=== PATIENT | female | born 1970 | race Caucasian/White ===

== ENCOUNTER 2019-07-11 19:03 | Emergency (ER) | payer OTHER ==
[2019-07-11] MEDS ORDERED: ASPIRIN 81 MG TABLET, CHEWABLE PO ONE (20:21)
--- NOTE | 2019-07-11 20:22 | ER Document Report ---
ED Medical Screen (RME) - General Chief Complaint: Chest Pain Stated Complaint: CHEST PAIN Time Seen by Provider: 07/11/19 20:12 TRAVEL OUTSIDE OF THE [place] IN LAST 30 DAYS: No - HPI Notes: 07/11/19 20:21 49-year-old female presents emergency room for complaints of substernal chest pain or shortness of breath that started approximately 2 hours ago while she was out with her friends, states that she is under a lot of stress, her girlfriends brother just which brought up memories of when her mother , and she also has to go to a different state to stay with her father who is 94 years old and is thinking about selling the farm. Patient non-smoker. Reports dad had a history of hypertension, no cardiac history with her mother. Denies any previous cardiac history. Patient states that a lot of her pain has resolved, thinks that it was related to anxiety however she still is stating that she has some chest tightness 2 out of 5. Denies any illicit drug use. I have greeted and performed a rapid initial assessment of this patient. A comprehensive ED assessment and evaluation of the patient, analysis of test results and completion of the medical decision making process will be conducted by additional ED providers. PHYSICAL EXAMINATION: GENERAL: Well-appearing, well-nourished and in no acute distress. HEAD: Atraumatic, normocephalic. NECK: Normal range of motion CV: s1, s2 regular LUNGS: No respiratory distress Musculoskeletal: Normal range of motion NEUROLOGICAL: Normal speech, normal gait. SKIN: Warm, Dry, normal turgor, no rashes or lesions noted. 07/11/19 20:22 - Related Data Allergies/Adverse Reactions: No Known Allergies Allergy (Verified 07/11/19 20:15) Home Medications: adderall, synthroid, synthroid Past Medical History - Social History Chew tobacco use (# tins/day): No Frequency of alcohol use: Occasional Drug Abuse: None - Past Medical History Cardiac Medical History: Reports: Hx Hypertension Pulmonary Medical History: Denies: Hx Tuberculosis Psychiatric Medical History: Reports: Hx Attention Deficit Hyperactivity Disorder, Hx Depression Past Surgical History: Reports: Hx Cholecystectomy, Hx Oral Surgery, Hx Orthopedic Surgery - right knee x2, Hx Tubal Ligation Physical Exam - Vital signs Vitals: Temp Pulse Resp BP Pulse Ox 97.6 F 81 16 117/80 99 07/11/19 19:32 07/11/19 19:32 07/11/19 19:32 07/11/19 19:32 07/11/19 19:32 Course - Vital Signs Vital signs: Temp Pulse Resp BP Pulse Ox 97.6 F 81 16 117/80 99 07/11/19 19:32 07/11/19 19:32 07/11/19 19:32 07/11/19 19:32 07/11/19 19:32
[2019-07-11 21:04] LABS: ABSOLUTE BASOPHILS # (AUTO) 0.1 10^3/uL (0.0-0.2); ABSOLUTE EOSINOPHILS # (AUTO) 0.1 10^3/uL (0.0-0.6); ABSOLUTE LYMPHOCYTES (AUTO) 1.3 10^3/uL (0.5-4.7); ABSOLUTE MONOCYTES (AUTO) 0.5 10^3/uL (0.1-1.4); BASOPHILS % (AUTO) 0.8 % (0-2); EOSINOPHILS % (AUTO) 1.5 % (0-6); HEMATOCRIT 41.7 % (36.0-47.0); HEMOGLOBIN 14.2 g/dL (12.0-15.5); LYMPHOCYTES % (AUTO) 18.4 % (13-45); MEAN CORPUSCULAR HEMOGLOBIN 33.5 pg (27.0-33.4); MEAN CORPUSCULAR HGB CONC 34.2 g/dL (32.0-36.0); MEAN CORPUSCULAR VOLUME 98 fl (80-97); MONOCYTES % (AUTO) 6.6 % (3-13); PLATELET COUNT 329 10^3/uL (150-450); RED BLOOD COUNT 4.25 10^6/uL (3.72-5.28); RED CELL DISTRIBUTION WIDTH 13.5 % (11.5-14.0); SEGMENTED NEUTROPHILS % (AUTO) 72.7 % (42-78); TOTAL CELLS COUNTED % (AUTO) 100 %; WHITE BLOOD COUNT 6.9 10^3/uL (4.0-10.5)
[2019-07-11 21:15] LABS: ALBUMIN 4.8 g/dL (3.5-5.0); ALKALINE PHOSPHATASE 40 U/L (38-126); ANION GAP 11 (5-19); ASPARTATE AMINO TRANSFERASE 44 U/L (14-36); BILIRUBIN,DIRECT 0.2 mg/dL (0.0-0.4); BILIRUBIN,TOTAL 0.4 mg/dL (0.2-1.3); BLOOD UREA NITROGEN 9 mg/dL (7-20); CARBON DIOXIDE 27 mmol/L (22-30); CHLORIDE 99 mmol/L (98-107); CREATINE KINASE 58 U/L (30-135); GLUCOSE 81 mg/dL (75-110); POTASSIUM 4.6 mmol/L (3.6-5.0); TOTAL PROTEIN 7.6 g/dL (6.3-8.2)
--- NOTE | 2019-07-11 21:21 | RADIOLOGY REPORT (SQ) ---
EXAM DESCRIPTION: XR CHEST 1 VIEW COMPLETED DATE/TME: 07/11/2019 20:21 CLINICAL HISTORY: 49 years, Female, chest pain COMPARISON: None. NUMBER OF VIEWS: Single TECHNIQUE: AP LIMITATIONS: None. FINDINGS: Cardiomediastinal silhouette is normal. Lungs are grossly clear. Old granulomatous disease. No effusion. No pneumothorax. IMPRESSION: No acute intrathoracic process is identified. The cause of the patient's chest pain is not identified on this examination. copyright 2010 [employer]- All Rights Reserved
[2019-07-11 21:27] LABS: CREATINE KINASE MB 0.31 ng/mL (<4.55)
[2019-07-11 21:28] LABS: TROPONIN I < 0.012 ng/mL
--- NOTE | 2019-07-11 23:32 | EKG REPORT ---
SEVERITY:- NORMAL ECG - SINUS RHYTHM : Confirmed by: Adele Mai MD 11-Jul-2019 23:32:05
[2019-07-12 01:16] VITALS: BP 108/77
--- NOTE | 2019-07-12 01:19 | ER Document Report ---
ED General - General Chief Complaint: Chest Pain Stated Complaint: CHEST PAIN Time Seen by Provider: 07/11/19 20:12 Primary Care Provider: RADHA BOBO DO [Primary Care Provider] - Follow up as needed TRAVEL OUTSIDE OF THE [place] IN LAST 30 DAYS: No - Related Data Allergies/Adverse Reactions: No Known Allergies Allergy (Verified 07/11/19 20:15) Home Medications: adderall, synthroid, synthroid Past Medical History - Social History Smoking Status: Never Smoker Chew tobacco use (# tins/day): No Frequency of alcohol use: Occasional Drug Abuse: None Family History: Hypertension Patient has suicidal ideation: No Patient has homicidal ideation: No - Past Medical History Cardiac Medical History: Reports: Hx Hypertension Pulmonary Medical History: Denies: Hx Tuberculosis Psychiatric Medical History: Reports: Hx Attention Deficit Hyperactivity Disorder, Hx Depression Past Surgical History: Reports: Hx Cholecystectomy, Hx Oral Surgery, Hx Orthopedic Surgery - right knee x2, Hx Tubal Ligation Physical Exam - Vital signs Vitals: Temp Pulse Resp BP Pulse Ox 97.6 F 81 16 117/80 99 07/11/19 19:32 07/11/19 19:32 07/11/19 19:32 07/11/19 19:32 07/11/19 19:32 Course - Re-evaluation Re-evalutation: 07/12/19 01:11 49-year-old female presented to ED with chest pain earlier that she felt could possibly be anxiety. She does have a heart score of 1 for age. She has 2- troponins she no longer has any pain her father had one mild MS in his 70s moth er did not have any coronary artery disease. EKG is normal. Will discharge home with instructions to follow-up her primary care doctor. - Vital Signs Vital signs: Temp Pulse Resp BP Pulse Ox 97.6 F 81 17 91/58 L 97 07/11/19 19:32 07/11/19 19:32 07/12/19 00:01 07/12/19 00:01 07/12/19 00:01 - Laboratory Result Diagrams: 07/11/19 20:47 07/11/19 20:47 Laboratory results interpreted by me: 07/11/19 07/11/19 20:47 20:47 MCV 98 H MCH 33.5 H AST 44 H - Diagnostic Test Radiology reviewed: Image reviewed, Reports reviewed Discharge - Discharge Clinical Impression: Chest pain Qualifiers: Chest pain type: unspecified Qualified Code(s): R07.9 - Chest pain, unspecified Condition: Stable Disposition: HOME, SELF-CARE Additional Instructions: CHEST PAIN OF UNCLEAR CAUSE: The exact cause of your chest pain isn't clear. Fortunately, there is no evidence of a dangerous medical condition. Further testing may be required to find the source of the pain. Most often, we find that this pain is coming from the chest wall -- the muscles or rib joints in the chest. But chest pain can come from the lung and lung lining, the esophagus, the heart valves or heart lining, and even the stomach or gallbladder. Rest. Eat lightly until the pain is gone. We may prescribe medicine for pain and inflammation. You should call the physician immediately if the pain radiates to the shoulder, jaw or arms; if you start to run a fever or develop a cough; or if you develop shortness of breath, or other new or alarming symptoms. NORMAL EXAM AND WORKUP: At this time, your examination and workup show no significant abnormality. No significant abnormal physical findings were noted. All laboratory, EKG, and imaging (x-ray, CT scans, ultrasound) studies that were ordered show no significant abnormality. Although your examination and all studies that were ordered showed no significant abnormal finding, there are no examinations and no studies that are 100% accurate. There is always the possibility that some abnormality could exist and not be detected with physical examination or within the limits and capabilities of laboratory and other studies. You should return or follow up as you were instructed on your visit today for further evaluation if your symptoms do not resolve. ASPIRIN: Aspirin has been shown to have a beneficial effect on blood circulation by reducing the clotting effect of platelets in the blood. These beneficial effects can be achieved by taking just a single baby (81 mg) aspirin a day. It is recommended that any person over the age of forty take a single baby aspirin every day for heart and brain circulation, unless you are allergic to aspirin or have some significant bleeding disorder. It is strongly recommended that people who have proven cardiac or blood circulation disturbances should take a baby aspirin every day. Your heart score is 1 points Low Score (0-3 points) Risk of MACE of 0.9-1.7%. You stated you have been very anxious concerning your friends brother passing away and this is made you think that your mother's and you think that is why you are having the chest pain tonight. She states she did not have any ch est pain at all at this time. You state you are also stressed about moving in with your father who is in 90s. FOLLOW-UP CARE: If you have been referred to a physician for follow-up care, call the [facility] office for an appointment as you were instructed or within the next two days. If you experience worsening or a significant change in your symptoms, notify the physician immediately or return to the Emergency Department at any time for re-evaluation. Forms: Return to Work Referrals: RADHA BOBO, DO [Primary Care Provider] - Follow up as needed
== END 2019-07-12 01:25 | disposition home or self-care (01) ==
LOC: ER 19:03
DX: R07.9 Chest pain, unspecified (principal); F90.9 Attention-deficit hyperactivity disorder, unspecified type; I10 Essential (primary) hypertension; Z79.899 Other long term (current) drug therapy
CPT/HCPCS: 36415; 71045; 80053; 82550; 82553; 84484; 85025; 93005; 93010; 99285